=== PATIENT | female | born 1980 | race Caucasian/White ===

== ENCOUNTER 2021-11-12 07:08 | Outpatient (CLI) | payer BC | END 2021-11-12 07:09 | disposition home or self-care (01) | LOC: CSHLAB 07:08 | PROVIDERS: ATTEND Obstetrics & Gynecology | DX: Z01.812 Encounter for preprocedural laboratory examination (principal); Z20.822 Contact with and (suspected) exposure to COVID-19 | CPT/HCPCS: 84703; 85027; 86850; 86900; 86901 ==

== ENCOUNTER 2021-11-17 10:35 | Day surgery (SDC) | payer BC ==
[2021-11-12 07:59] LABS: Hemoglobin 14.4 g/dL (12.0-15.5); Mean Corpuscular Hemoglobin 30.4 pg (27.0-33.0); Mean Corpuscular Volume 86.7 fl (81.6-98.3); Mean Platelet Volume 10.1 fl (7.4-10.4); Platelet Count 338 10x3/uL (150-450); RBC Distribution Width 12.3 % (11.5-14.5); Red Blood Cell (RBC) Count 4.74 10x6/uL (3.90-5.03); White Blood Cell (WBC) Count 13.7 10x3/uL (3.5-10.5)
[2021-11-12 08:06] LABS: BHCG - Serum Negative (NEGATIVE); Pregs Control Background? CLEAR/WHITE (CLR/WHITE); Pregs Control Bar Appear? YES (CONTROL BAR)
[2021-11-16 09:28] VITALS: BMI 32.5
[2021-11-17] MEDS ORDERED: Lidocaine 1% MPF 2 ML VIAL ONE (10:46)
[2021-11-17] MEDS ORDERED: CeleCOXIB 100 MG CAP ONE (10:46)
[2021-11-17] MEDS ORDERED: Fentanyl 100 MCG/2 ML VIAL ONE ×2 (12:19→12:58)
[2021-11-17] MEDS ORDERED: PROPOFOL 20 ML ONE (12:19)
[2021-11-17] MEDS ORDERED: SUGAMMADEX SODIUM 200 MG/2 ML VIAL ONE (12:21)
[2021-11-17] MEDS ORDERED: HYDROmorphone 0.5 MG/0.5 ML SYRINGE ONE (12:22)
[2021-11-17] MEDS ORDERED: CEFAZOLIN 2 GM VIAL ONE (12:23)
[2021-11-17] MEDS ORDERED: Meperidine HCl/PF 25 MG/ML VIAL ONE (12:59)
[2021-11-17] MEDS ORDERED: Ondansetron PF 4 MG/2 ML Vial ONE ×2 (13:00→13:32)
[2021-11-17] MEDS ORDERED: Rocuronium Bromide 10 MG/ML (10ML VIAL) ONE (13:32)
[2021-11-17] MEDS ORDERED: Lidocaine 4% PF 5 ML AMP ONE (13:32)
[2021-11-17] MEDS ORDERED: Esmolol 100 MG/10 ML VIAL ONE (13:32)
[2021-11-17] MEDS ORDERED: Dexamethasone 4 mg/ml Vial ONE (13:32)
== END 2021-11-17 14:15 | disposition home or self-care (01) ==
LOC: CSHSDC 10:35
PROVIDERS: ATTEND Obstetrics & Gynecology
PROC: 0U5B8ZZ Destruction of Endometrium, Via Natural or Artificial Opening Endoscopic (ICD-10-PCS; principal; 2021-11-17)
DX: N92.0 Excessive and frequent menstruation with regular cycle (principal); N84.0 Polyp of corpus uteri
CPT/HCPCS: 84703; 85027; 86850; 86900; 86901; J0690; J1100; J1170; J2175; J2405; J2704; J3010